=== PATIENT | female | born 1935 | race Hispanic/Latino ===

== ENCOUNTER 2021-12-02 15:30 | Emergency (ER) | payer MEDICARE ==
--- NOTE | 2021-12-02 16:04 | Event Note ---
ED Screening Note ED Screening Note: sent by pcp for ro dvt rle swollen no hx of dvt no hx trauma This initial assessment/diagnostic orders/clinical plan/treatment(s) is/are subject to change based on patients health status, clinical progression and re- assessment by fellow clinical providers in the ED. Further treatment and workup at subsequent clinical providers discretion. Patient/guardian urged not to elope from the ED as their condition may be serious if not clinically assessed and managed. Initial orders include: labs ekg US
--- NOTE | 2021-12-02 16:55 | Vascular Lab Report ---
DUPLEX DOPPLER LOWER EXTREMITY VEINS, RIGHT INDICATION: SWELLING, R/O DVT. Right lower extremity pain and swelling. TECHNIQUE: Duplex doppler imaging was performed through the veins of the right lower extremity using venous comp ression and other maneuvers. COMPARISON: None available. FINDINGS: Common Femoral vein: Negative. Superficial Femoral vein: Negative. Popliteal vein: Negative. Calf veins: Negative. Additional findings: Mild subcutaneous edema present. IMPRESSION: 1. No sonographic evidence for DVT in the right lower extremity. Signer Name: Oscar Ramirez MD Signed: 12/02/2021 4:51 PM Workstation Name: [id number]
[2021-12-02 17:31] LABS: Hematocrit 36.4 % (30.3-42.9); Mean Corpuscular HGB Conc 33 % (30-34); Mean Corpuscular Volume 95 fl (79-97); Platelet Count 179 K/mm3 (140-440); Red Blood Count 3.86 M/mm3 (3.65-5.03); Red Cell Distribution Width 15.6 % (13.2-15.2)
[2021-12-02 17:52] LABS: INR 0.9 (0.87-1.13)
[2021-12-02 17:53] LABS: Alanine Aminotransferase 9 units/L (7-56); Albumin 4.1 g/dL (3.9-5); Blood Urea Nitrogen 22 mg/dL (7-17); Calcium 9.8 mg/dL (8.4-10.2); Hemolysis Index 6; Partial Thromboplastin Time 34.1 Sec. (24.2-36.6)
[2021-12-02 18:16] LABS: BUN/Creatinine Ratio 31
[2021-12-03] MEDS ORDERED: DOXYCYCLINE 100 MG CAP PO ONE (01:05)
--- NOTE | 2021-12-03 01:42 | Emergency Department Report ---
ED Extremity Problem HPI - General Chief complaint: Extremity Problem,Nontraumatic Stated complaint: ? BLOOD CLOT/ PCP SENT Source: patient Mode of arrival: Ambulatory Limitations: No Limitations - History of Present Illness Initial comments: Patient is an 86-year-old female with past medical history of osteoarthritis who presents to the ED with complaint of acute onset persistent nontraumatic right lower leg pain and swelling for the last 1 week. Patient states that she has been elevating the right lower leg and the swelling improves occasionally but is persistent. Patient denies dizziness, syncope, chest pain or shortness of breath, fever, chills, nausea and vomiting, diarrhea, abdominal pain, cough, traumatic injury, heavy lifting or fall. MD Complaint: extremity pain (right lower leg pain, swelling and erythematous rash), extremity swelling (right lower leg swelling), joint swelling (right ankle swelling) -: Gradual, week(s) (1) Location: right, lower extremity (lower leg) History of Same: Yes -: Yes myalgia, Yes arthralgia, No fever, No associated dyspnea, No associated chest pain Radiation: distal Severity scale (0 -10): 4 Quality: aching, sharp, constant Consistency: constant Improves with: nothing Worsens with: nothing Associated Symptoms: denies other symptoms. denies: chest pain, shortness of breath, fever, myalgias, arthralgias - Related Data Previous Rx's Medication Instructions Recorded Last Taken Type cephALEXin [Keflex] 250 mg PO Q6H #20 capsule 08/02/14 Unknown Rx Doxycycline Monohydrate 100 mg PO Q12H #20 cap 12/03/21 Unknown Rx Allergies Allergy/AdvReac Type Severity Reaction Status Date / Time No Known Allergies Allergy Verified 12/02/21 15:56 ED Review of Systems ROS: Stated complaint: ? BLOOD CLOT/ PCP SENT Other details as noted in HPI Constitutional: denies: chills, fever Eyes: denies: eye pain, eye discharge, vision change ENT: denies: ear pain, throat pain Respiratory: denies: cough, shortness of breath, wheezing Cardiovascular: denies: chest pain, palpitations Endocrine: no symptoms reported Gastrointestinal: denies: abdominal pain, nausea, diarrhea Genitourinary: denies: urgency, dysuria, discharge Musculoskeletal: joint swelling (right lower leg pain and swelling), arthralgia (right lower leg pain and swelling). denies: back pain, myalgia Skin: rash (mildly erythemtous rash on right lower leg), change in color. denies: lesions, change in hair/nails, pruritus, other Neurological: denies: headache, weakness, paresthesias Psychiatric: denies: anxiety, depression Hematological/Lymphatic: denies: easy bleeding, easy bruising ED Past Medical Hx - Social History Smoking Status: Never Smoker Substance Use Type: None - Medications Home Medications: Home Medications Medication Instructions Recorded Confirmed Last Taken Type cephALEXin [Keflex] 250 mg PO Q6H #20 capsule 08/02/14 Unknown Rx Doxycycline Monohydrate 100 mg PO Q12H #20 cap 12/03/21 Unknown Rx ED Physical Exam - General Limitations: No Limitations General appearance: alert, in no apparent distress - Head Head exam: Present: atraumatic, normocephalic, normal inspection - Eye Eye exam: Present: normal appearance, PERRL, EOMI Pupils: Present: normal accommodation - ENT ENT exam: Present: normal exam, normal orophraynx, mucous membranes moist, TM's normal bilaterally, normal external ear exam - Neck Neck exam: Present: normal inspection, full ROM. Absent: tenderness - Respiratory Respiratory exam: Present: normal lung sounds bilaterally. Absent: respiratory distress, wheezes, rales, rhonchi, chest wall tenderness, accessory muscle use, decreased breath sounds, prolonged expiratory, other - Cardiovascular Cardiovascular Exam: Present: regular rate, normal rhythm, normal heart sounds. Absent: systolic murmur, diastolic murmur, rubs, gallop - GI/Abdominal GI/Abdominal exam: Present: soft, normal bowel sounds. Absent: tenderness, guar ding, rebound, hyperactive bowel sounds, hypoactive bowel sounds, organomegaly, mass - Extremities Exam Extremities exam: Present: normal inspection, full ROM, tenderness (Palpable right lower leg tenderness and mild swelling), normal capillary refill, joint sw elling (swollen right lower leg and ankle), calf tenderness (right lower leg). Absent: pedal edema - Back Exam Back exam: Present: normal inspection, full ROM. Absent: tenderness, CVA tenderness (R), CVA tenderness (L), muscle spasm, paraspinal tenderness, ve rtebral tenderness - Neurological Exam Neurological exam: Present: alert, oriented X3, CN II-XII intact, normal gait, reflexes normal - Psychiatric Psychiatric exam: Present: normal affect, normal mood - Skin Skin exam: Present: warm, dry, intact, normal color, rash (Mildly erythematous rash on right lower leg with swelling and mild tenderness), erythema. Absent: cyanosis, diaphoretic, urticaria, vesicles, petechiae, pallor, abrasion, other ED Course Vital Signs 12/02/21 15:50 Temperature 97.6 F Pulse Rate 76 Respiratory 18 Rate Blood Pressure 140/67 [Left] O2 Sat by Pulse 96 Oximetry ED Medical Decision Making - Lab Data Result diagrams: 12/02/21 16:52 12/02/21 16:52 - Radiology Data [facility] [address] [place] [address] Vascular Lab Report Signed Patient: LEIA NICOLAS MR#: [id number] : 1935 Acct:[id number] Age/Sex: 86 / F ADM Date: 12/02/21 Loc: ED Attending Dr: Ordering Physician: CHARLIE MARSH Date of Service: 12/02/21 Procedure(s): VL venous duplex LE RT Accession Number(s): [id number] cc: CHARLIE MARSH DUPLEX DOPPLER LOWER EXTREMITY VEINS, RIGHT INDICATION: SWELLING, R/O DVT. Right lower extremity pain and swelling. TECHNIQUE: Duplex doppler imaging was performed through the veins of the right lower extremity using venous compression and other maneuvers. COMPARISON: None available. FINDINGS: Common Femoral vein: Negative. Superficial Femoral vein: Negative. Popliteal vein: Negative. Calf veins: Negative. Additional findings: Mild subcutaneous edema present. IMPRESSION: 1. No sonographic evidence for DVT in the right lower extremity. Signer Name: Oscar Ramirez MD Signed: 12/02/2021 4:51 PM Workstation Name: [id number] Transcribed By: BC Dictated By: Oscar Ramirez MD Electronically Authenticated By: Oscar Ramirez MD Signed Date/Time: 12/02/211650 DD/ 49 TD/TT: Print - Medical Decision Making This is an 86-year-old female with past medical history of osteoarthritis who presents to the ED with complaint of acute onset persistent nontraumatic right lower leg pain and swelling for the last 1 week. Patient states that she has been elevating the right lower leg and the swelling improves occasionally but is persistent. In the ED, patient is alert and oriented x3 and is not in any distress. Lab test results were reviewed and are all nonactionable. Doppler right lower leg ultrasound showed no sonographic evidence of DVT. Based on the history and physical exam findings, patient was empirically treated with doxycycline in the ED for suspected cellulitis of the right lower leg. Patient was advised to follow-up with her primary care physician in 5 to 7 days for reevaluation or return to the ED immediately if symptoms get worse. - Differential Diagnosis Cellulitis; DVT; muscle strain; muscle spasm; Critical care attestation.: If time is entered above; I have spent that time in minutes in the direct care of this critically ill patient, excluding procedure time. ED Disposition Clinical Impression: Localized swelling of right lower leg, Cellulitis of right lower extremity Disposition: 01 HOME / SELF CARE / HOMELESS Is pt being admited?: No Condition: Stable Instructions: Cellulitis, Adult, [id number] Additional Instructions: Follow-up test results were reviewed and are all nonactionable. Doppler right lower leg ultrasound showed no sonographic evidence of DVT. Therefore take medication with food, plenty of fluids, follow-up with your primary care physician in 5 to 7 days for reevaluation. Return to the ED immediately if symptoms get worse. Prescriptions: Doxycycline Monohydrate 100 mg PO Q12H #20 cap Referrals: [facility] [Provider Group] - 3-5 Days Time of Disposition: 01:43 Print Language: HEBREW
[2021-12-03 02:16] VITALS: BP 158/85
--- NOTE | 2021-12-03 18:35 | Electrocardiograph Report ---
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
== END 2021-12-03 02:46 | disposition home or self-care (01) ==
LOC: ED 15:30
DX: L03.115 Cellulitis of right lower limb (principal); R22.41 Localized swelling, mass and lump, right lower limb
CPT/HCPCS: 36415; 80053; 83880; 84484; 85027; 85610; 85730; 93005; 99284